=== PATIENT | female | born 1970 | race Two or more races ===

== ENCOUNTER 2025-02-03 03:18 | Emergency (ER) | payer MEDICAID, SELFPAY ==
[2025-02-03 03:20] VITALS: BMI 31.8
[2025-02-03 03:34] VITALS: BP 158/85; PULSE 70; RESP 18; TEMP 36.6; O2SAT 97
--- NOTE | 2025-02-03 03:56 | XR_ITS ---
EXAMINATION: Cervical spine 3 views TECHNIQUE: AP lateral coned AP odontoid cervical spine 3 views Date and time: February 03, 2025, 0359 hours INDICATIONS: Neck pain beginning 3 days ago FINDINGS: Adequate alignment cervical vertebral bodies No cervical fracture No significant cervical disc narrowing Intact odontoid IMPRESSION: No cervical fracture or significant cervical disc narrowing
--- NOTE | 2025-02-03 03:56 | EKG_ITS ---
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
--- NOTE | 2025-02-03 03:57 | PD.EDRME ---
Rapid Medical Screening Exam E Arrival date/time: 02/03/25 03:18 This is a case of 54-year-old female who came in in the emergency room initially due to neck pain upon examining patient patient is also complaining of chest pain and left upper arm pain no injury no trauma denies any shortness of palpitation Chief Complaint: Neck Pain/Injury Vital signs: Vital Signs Temperature 97.8 F 02/03/25 03:34 Pulse Rate 70 02/03/25 03:34 Respiratory Rate 18 02/03/25 03:34 Blood Pressure 158/85 H 02/03/25 03:34 Pulse Oximetry (%) 97 02/03/25 03:34 Oxygen Delivery Method Room Air 02/03/25 03:34 Exam: Normal rate regular rhythm lungs sound is clear left arm exam and neck exam are normal Clinical Impression: Neck pain chest pain
[2025-02-03 04:22] VITALS: BP 161/82; PULSE 73; RESP 16; TEMP 37; O2SAT 99
[2025-02-03 04:50] LABS: Collection Type, Urine Clean Catch
[2025-02-03 04:53] LABS: Basophils # (Auto) 0.0 Thou/mm3 (0.0-0.2); Basophils % (Auto) 0 % (0-2.5); Eosinophils # (Auto) 0.1 Thou/mm3 (0.0-0.5); Eosinophils % (Auto) 1 % (0-10); Hematocrit 37.7 % (36.0-46.0); Hemoglobin 12.5 g/dL (12.0-16.0); Immature Granulocytes Auto 0.01 Thou/mm3 (0.00-0.00); Lymphocytes # (Auto) 3.9 Thou/mm3 (1.0-4.8); Lymphocytes % (Auto) 51 % (10-50); Mean Corpuscular HGB Conc 33.2 g/dl (31.0-37.0); Mean Corpuscular Hemoglobin 28.3 pg (25.0-35.0); Mean Corpuscular Volume 85 fL (80-100); Monocytes # (Auto) 0.5 Thou/mm3 (0.0-0.8); Monocytes % (Auto) 6 % (0-12); Neutrophils # (Auto) 3.1 Thou/mm3 (1.8-7.7); Neutrophils % (Auto) 41 % (37-80); Nucleated Red Blood Cell # 0.00 Thou/mm3 (0.00-0.00); Nucleated Red Blood Cell % 0 /100 WBC (0); Platelet Count 243 Thou/mm3 (140-440); RDW Standard Deviation 38.5 fL (36.4-46.3); Red Blood Count 4.42 Miln/mm3 (4.00-5.20); White Blood Count 7.6 Thou/mm3 (3.6-11.0)
[2025-02-03 04:57] LABS: Bilirubin,Urine Negative (Negative); Blood,Urine Negative (Negative); Clarity,Urine Clear (Clear/Hazy); Color,Urine Colorless (Lt Yel-Yel); Glucose, Urine Negative (Negative); Ketones,Urine Negative (Negative); Leukocyte Esterase,Urine Positive (Negative); Nitrite,Urine Negative (Negative); PH,Urine 6.0 (5.0-7.0); Protein,Urine Negative (Neg - Trace); RBC,Urine 2 /hpf (0-3); Specific Gravity,Urine 1.010 (1.001-1.035); Squamous Epithelial Cell,Urine < 1 /hpf (0-5); Urobilinogen,Urine Negative mg/dL (0.0-1.0); WBC,Urine 9 /hpf (0-5)
[2025-02-03 04:58] LABS: HCG Qualitative,Urine Negative
[2025-02-03 05:11] LABS: Alanine Aminotransferase 13 U/L (10-49); Albumin, Serum 4.8 gm/dL (3.5-5.0); Albumin/Globulin Ratio 1.9 (1.2-2.2); Alkaline Phosphatase 83 U/L (46-116); Anion Gap 10 (7-16); Aspartate Amino Transferase 15 U/L (0-34); BUN/Creatinine Ratio 17 Ratio (12-20); Bilirubin,Total 0.4 mg/dL (0.3-1.2); Blood Urea Nitrogen 15 mg/dL (9-23); Calcium 9.4 mg/dL (8.3-10.6); Calcium (Corrected) 9.4 mg/dL (8.5-10.1); Carbon Dioxide 24.9 mMol/L (20.0-31.0); Chloride 108 mMol/L (98-107); Creatinine (Component) 0.9 mg/dL (0.6-1.3); Estimated Creatinine Clearance 64.9 mL/min (>60); Globulin 2.5 gm/dL (2.3-3.5); Glucose 116 mg/dL (74-106); Osmolality,Calculated 286 (275-295); Potassium 4.1 mMol/L (3.4-5.1); Sodium 143 mMol/L (136-145); Total Protein 7.3 gm/dL (5.7-8.2); Troponin I < 0.002 ng/mL (0.0-0.045); eGFR > 60 See Note
[2025-02-03 06:22] VITALS: BP 129/58; PULSE 64; RESP 20; TEMP 36.7; O2SAT 100
--- NOTE | 2025-02-03 06:27 | EDNOTE_ITS ---
ED Neck Injury Pain RME/HPI General Chief Complaint: Neck Pain/Injury Stated Complaint: NECK PAIN Time Seen by Provider: 02/03/25 03:58 Source: patient Arrival date/time: 02/03/25 03:18 Mode of arrival: ambulatory Limitations: no limitations RME / HPI RME / HPI Narrative: 02/03/25 03:18 This is a case of 54-year-old female who came in in the emergency room initially due to neck pain upon examining patient patient is also complaining of chest pain and left upper arm pain no injury no trauma denies any shortness of palpitation Dr. Mendoza evaluation Patient is a 54-year-old female with medical history notable for hyperlipidemia, prediabetes sent to the emergency department concerns for pain at her left lateral neck. Denies fevers, chills, nausea, vomiting, recent injury, history of IV drug use, weakness in her extremities or changes in sensation. Patient does not have any pain along the midline of her neck. Patient works picking grapes. Exam: Normal rate regular rhythm lungs sound is clear left arm exam and neck exam are normal Impression: Neck pain chest pain Related Data Allergies Allergy/AdvReac Type Severity Reaction Status Date / Time naproxen Allergy Gastrointestinal Verified 02/03/25 04:35 Upset Penicillins Allergy Verified 02/03/25 04:35 ED Exam General Limitations: Present no limitations General appearance: Present alert and in no apparent distress Head Head exam: Present atraumatic and normocephalic Eye Eye exam: Present normal appearance and PERRL ENT ENT exam: Present normal exam and mucous membranes moist Neck Neck exam: Present normal inspection, full ROM, trachea midline and tenderness (Tenderness palpation along the left lateral neck as well as left trapezius, no midline tenderness to palpation no step-offs or deformities of the cervical spine, no tenderness palpation along the right neck) Chest Chest inspection: Present normal inspection and symmetric chest wall rise Respiratory Respiratory exam: Absent respiratory distress Cardiovascular Cardiovascular exam: Present regular rate Abdominal Exam Abdominal exam: Present soft; Absent distention Extremities Exam Extremities exam: Present normal inspection, full ROM and normal capillary refill; Absent tenderness, pedal edema or joint swelling Back Exam Back exam: Present normal inspection; Absent tenderness Neurological Exam Neurological exam: Present alert and other (No focal neurodeficits, strong in all 4 extremities, sensation intact) Psychiatric Psychiatric exam: Present normal affect and normal mood Skin Skin exam: Present warm and dry Course Quality Measures none Orders Category Date Time Status EKG (ED ONLY) *Do not use* NOW Care 02/03/25 03:56 Completed EKG (ED Only) Stat Exams 02/03/25 03:56 Draft XR cervical spine 2-3V Stat Exams 02/03/25 03:56 Completed CBC Stat Lab 02/03/25 04:44 Completed Comprehensive Metabolic Panel Stat Lab 02/03/25 04:44 Completed HCG Qualitative,Urine Stat Lab 02/03/25 04:26 Completed Troponin I Stat Lab 02/03/25 04:44 Completed Urinalysis Stat Lab 02/03/25 04:26 Completed Acetaminophen Tab [Tylenol Tab] Med 02/03/25 06:36 Discontinued 650 mg PO X1 ONE Lidocaine 5% Patch Med 02/03/25 06:36 Discontinued 1 patch TOP X1 ONE Vital Signs Vital signs: Vital Signs Temperature 97.8 F 02/03/25 03:34 Pulse Rate 70 02/03/25 03:34 Respiratory Rate 18 02/03/25 03:34 Blood Pressure 158/85 H 02/03/25 03:34 Pulse Oximetry (%) 97 02/03/25 03:34 Oxygen Delivery Method Room Air 02/03/25 03:34 Neck Pain MDM Narrative MDM Narrative:: Patient is a 54-year-old female is in the emergency department in the neck pain chest pain. Prior provider evaluated patient. Ordered labs EKG cervical spine x-ray. On my evaluation patient does not have any midline tenderness palpation of her neck, she has tenderness to palpation along the left trapezius, lateral neck. No step-offs or deformities of the cervical spine. No weakness in all 4 extremities, sensation intact. No chest pain no abdominal pain. Concern for muscle strain, possible radiculopathy. EKG interpreted by me Dr. Trish Mendoza, performed at 358 in the morning, sinus rhythm, normal intervals, nonspecific T wave changes, not a cardiac alert. Labs without any acute hematologic or metabolic abnormality troponin not elevated. X-ray of the cervical spine without any acute abnormalities. On reevaluation patient hemodynamically stable not distress symptoms well- controlled. Advised patient as well as her daughter to look up exercises to help relieve muscle tension and pain in the trapezius muscles. Given that patient works in the [employer] I also advised her to stretch before and after work. Gave her close return precautions have her follow-up with her primary doctor within 1 to 2 days. Advised her that if she develops any weakness shortness of breath or any other symptom of concern to return to the emergency department immediately Patient data External records reviewed:: None Clinical information provided by:: patient Social determinants that could affect healthcare access:: none Patient has the following chronic illnesses:: See MDM How is presenting disease/condition affected by chronic disease/condition?: uneffected by Evaluation data The following diagnostics were reviewed and interpreted by me:: lab results, radiology exam(s) and EKG tracing(s) Lab and/or radiology exams considered but not ordered:: None Interpretation Summary: See MDM Medications / Prescriptions Medications or Prescriptions considered but not ordered:: None Medication administrations:: Medication Administration History Discontinued Medications Acetaminophen (Acetaminophen 325 Mg Tablet) 650 mg PO X1 ONE Stop: 02/03/25 06:37 Last Admin: 02/03/25 06:56 Dose: 650 mg Documented By: UNIQUE Lidocaine (Lidocaine 5% 1 Patch) 1 patch TOP X1 ONE Stop: 02/03/25 06:37 Last Admin: 02/03/25 06:57 Dose: 1 patch Documented By: UNIQUE See above Consultations Consultation(s) initiated? (list below): No Diagnosis Neck Differential Diagnosis: other Most likely diagnosis given after review of the tests above:: See MDM Admission Indicated Admission indicated?: not indicated Admission Request Was there a request for admission?: No Disposition Plan Disposition Plan: Discharge Discharge Attestation Discharge Attestation: The patient and all family members were given an opportunity to ask questions and understood the discharge instructions. Discharge instructions specifically effects, indications for sooner follow up or return to the emergency department, and the expected course of current diagnosis. Patient condition: Stable Discharge Plan Plan Patient Disposition: HOME (Self Care) Prescriptions/Referrals Referrals: Dayron King MD [Primary Care Provider, Family Practice] - In 1 week Problem List Clinical Impression: Strain of neck muscle Patient/Caregiver Discharge Instructions Education Materials: ED Neck Sprain or Strain Additional Instructions: Por favor hacer ejercisios de estiramiento de los musculos del hombro y del tigre antes y despues de trabajar. Le recomiendo utilizar parches de lidocaine angelique vez por tawana para el dolor. Hacer ab con el medico de cabecera. Regresar de inmediato si tiene empeoramiento de sintomas u otros sintos de preocupacion. Print Language: Kiswahili Stand Alone Forms: Lucita Award Info., Patient Portal Info Letter
--- NOTE | 2025-02-03 06:30 | PC.NURSE ---
DR. AUSTIN IN ROOM SPEAKING WITH PATIENT AND FAMILY MEMBER.
[2025-02-03] MEDS: ACETAMINOPHEN 325 MG TABLET 650 MG PO (06:56)
[2025-02-03] MEDS: LIDOCAINE 5% 1 PATCH TOP (06:57)
[2025-02-03 07:17] VITALS: BP 136/77; PULSE 57; RESP 12; TEMP 36.6; O2SAT 99
[2025-02-03 08:08] VITALS: BP 127/72; PULSE 61; RESP 20; O2SAT 99
== END 2025-02-03 08:08 | disposition home or self-care (01) ==
PROVIDERS: Nurse Practitioner Family; Emergency Provider Emergency Medicine; PCP Family Medicine
DX: S16.1XXA Strain of muscle, fascia and tendon at neck level, initial encounter (principal); R94.31 Abnormal electrocardiogram [ECG] [EKG]; X58.XXXA Exposure to other specified factors, initial encounter
CPT/HCPCS: 36415; 72040; 80053; 81001; 81025; 84484; 85025; 93005; 99283; J3490; A9270